=== PATIENT | male | born 1985 | race Two or more races ===

== ENCOUNTER 2021-11-04 10:39 | Emergency (ER) | payer SELFPAY ==
[2021-11-04 10:49] VITALS: BP 133/71
[2021-11-04] MEDS ORDERED: IBUPROFEN 600 MG TABLET PO STA (11:17)
[2021-11-04] MEDS ORDERED: ACETAMINOPHEN 325 MG TABLET PO STA (11:17)
--- NOTE | 2021-11-04 11:35 | XRAY Report ---
PROCEDURE: Knee 4 View LT INDICATIONS: Trauma TECHNIQUE: 5 views of the left knee(s) were acquired. COMPARISON: None. FINDINGS: Bones: No fractures or dislocations. Moderate tricompartmental osteoarthritis is seen. No patella s ubluxation. No suspicious bony lesions. Soft tissues: No significant joint effusion. No suspicious soft tissue calcifications. IMPRESSION: No acute left knee fracture or dislocation. Moderate tricompartmental osteoarthritis. No significant joint effusion. Reviewed by: Eliseo Li MD on 11/04/2021 11:33 AM PDT Approved by: Eliseo Li MD on 11/04/2021 11:33 AM PDT Station ID: [id number]
--- NOTE | 2021-11-04 11:38 | ED Physician Documentation ---
PD HPI LOWER EXT INJURY - Stated complaint Stated Complaint: LT KNEE PAIN - Chief complaint Chief Complaint: Ext Problem - History obtained from History obtained from: Patient - History of Present Illness PD HPI LOW EXT INJURY LOCATION: Left, Knee Type of injury: Twist Where injury occurred: Home Timing - onset: Last night (he has had pain in the knee since a twisting injury 2 years ago, with pain at times, and occasional pops/giving out feeling. Last night he just twisted/pivoted on the foot and felt a pop and giving out of the knee, with subsequent swelling and feeling of stiffness. Moderate pain with walking.) Timing - duration: Days (2) Timing - details: Abrupt onset (has been hurting at times for awhile but abrupt worsening last night.), Still present Worsened by: Moving, Palpating, Other (pivoting and going up/down steps.) Associated symptoms: Swelling. No: Weakness, Numbness Similar symptoms before: No diagnosis Recently seen: Not recently seen Review of Systems Skin: denies: Abrasion (s), Laceration (s) Neurologic: denies: Focal weakness, Numbness PD PAST MEDICAL HISTORY - Past Medical History Cardiovascular: None Musculoskeletal: None - Present Medications Home Medications: Ambulatory Orders Medication Instructions Recorded Confirmed HYDROcod/ACETAM 5/325 [[place] 5/325] 1 ea PO Q6H PRN #18 tablet 11/04/21 Naproxen 500 mg PO BID #20 tab.sr 11/04/21 - Allergies Allergies/Adverse Reactions: Allergies Allergy/AdvReac Type Severity Reaction Status Date / Time No Known Drug Allergies Allergy Verified 11/04/21 10:47 PD ED PE NORMAL - Vitals Vital signs reviewed: Yes - General General: Alert and oriented X 3, Well developed/nourished - Derm Derm: Normal color, Warm and dry, No rash - Extremities Extremities: Other (left knee with some effusion, not tense. Tender largely lateral aspect. No noted laxity/pain with cruciate testing. Collateral testing causes some pain laterally with valgus stress. Also with pivot testing. No locking nor pops on passive full extension and flexion to 90. Seems likely meniscal proces) - Neuro Neuro: No motor deficit, No sensory deficit Results - Vitals Vitals: Vital Signs - 24 hr 11/04/21 10:47 Temperature 36.9 C Heart Rate 93 Respiratory 19 Rate Blood Pressure 133/71 H O2 Saturation 98 Oxygen O2 Source Room air - Rads (name of study) knee xray Radiology: Prelim report reviewed (some arthritic changes. No fractures. ), See rad report Departure - Departure Disposition: 01 Home, Self Care Clinical Impression: Knee pain, acute Qualifiers: Laterality: left Qualified Code(s): M25.562 - Pain in left knee Acute meniscal injury of left knee Qualifiers: Encounter type: initial encounter Qualified Code(s): S83.8X2A - Sprain of other specified parts of left knee, initial encounter Condition: Stable Record reviewed to determine appropriate education?: Yes Instructions: ED Meniscal Injury Knee Poss Follow-Up: Ken Armijo MD [Provider Admit Priv/Credential] - Prescriptions: Naproxen 500 mg PO BID #20 tab.sr HYDROcod/ACETAM 5/325 [[place] 5/325] 1 ea PO Q6H PRN #18 tablet PRN Reason: Pain Comments: Your knee x-ray shows some mild to moderate arthritis. Your symptoms however are more suggestive of a meniscal injury that now likely has more of a tear. I would have you use your knee brace when up and around to help support the knee movement and ligaments. Crutches as needed for partial weightbearing for comfort. Ice elevate and rest the knee often today and tomorrow to reduce swelling. Off work likely today and tomorrow to allow the pain to settle down a bit. I would suggest regular anti-inflammatories such as naproxen twice daily with food for the next 7 to 10 days. To that add Tylenol every 4-6 hours for mild pain or hydrocodone as needed for worse pain. I transmitted the prescription to the [facility] pharmacy here in [place]. I would have you follow-up with orthopedic office for reevaluation. Call today for an appointment for likely end of next week or so. This will give time for the pain to settle down a bit and allow a better exam. At that point they can decide on further treatment plan and whether other imaging is indicated. I am prescribing a short course of narcotic pain medication for you. These are potentially dangerous and addictive medications that should be used carefully. These medications may constipate you. Take an [id number] stool softener such as docusate twice daily with plenty of water while taking these medications. If you go 24 hours without a bowel movement, take [id number] MiraLAX, per package instructions. Do not drink or drive while taking these medications. If you received narcotic or sedating medications while in the emergency department do not drive for 24 hours. Store this medication in a safe, secure place and out of reach of children. It is a violation of federal law to give or sell this medication to another person or to use in a manner other than prescribed. The ED will not refill narcotic prescriptions, including prescriptions lost or stolen. You can dispose of unwanted medications at the [facility]'s office or at several pharmacies such as [facility]. Forms: Activity restrictions Discharge Date/Time: 11/04/21 11:58
== END 2021-11-04 11:58 | disposition home or self-care (01) ==
LOC: ED 10:39
DX: S83.8X2A Sprain of other specified parts of left knee, initial encounter (principal); X50.1XXA Overexertion from prolonged static or awkward postures, initial encounter
CPT/HCPCS: 99282; 99283